=== PATIENT | female | born 1980 | race Caucasian/White ===

== ENCOUNTER 2021-03-15 11:53 | Outpatient (RCR) | payer SELFPAY | END 2021-03-15 23:59 | LOC: DC 11:53 | PROVIDERS: Visit Provider Advanced Practice Midwife | DX: O24.410 Gestational diabetes mellitus in pregnancy, diet controlled (principal); Z3A.00 Weeks of gestation of pregnancy not specified | CPT/HCPCS: 97802 ==

== ENCOUNTER 2021-03-28 14:00 | Outpatient (RCR) | payer SELFPAY | END 2021-04-15 23:59 | LOC: DC 14:00 | PROVIDERS: Visit Provider Advanced Practice Midwife | DX: O24.410 Gestational diabetes mellitus in pregnancy, diet controlled (principal); Z3A.00 Weeks of gestation of pregnancy not specified ==

== ENCOUNTER 2021-05-23 08:35 | Inpatient (IN) | payer SELFPAY ==
[2021-05-23] VITALS (36 sets, daily range): BP systolic 120–150; BP diastolic 82–89; PULSE 68–99; TEMP 36.4–37.4; O2SAT 96–98; BMI 37.0
[2021-05-23 09:30] LABS: Bedside Glucose 99 mg/dL (70-110)
[2021-05-23] MEDS: Lactated Ringers 1,000 ML 50 ML IV (10:00)
[2021-05-23 10:22] LABS: Absolute Lymphocyte Count 1.35 X10^3/uL (0.83-4.51); Absolute Neutrophil Count 4.9 X10^3/uL (2.0-7.7); Basophil# 0.03 X10^3/uL; Basophil% 0.4 % (0-1); Eosinophil# 0.11 X10^3/uL; Eosinophils% 1.6 % (0-5); Hematocrit 35.2 % (37-47); Hemoglobin 11.4 g/dL (12.0-15.0); Lymphocyte # 1.35 X10^3/ul (0.83-4.51); Lymphocyte % 19.8 % (19-41); Mean Corp Hgb Conc 32.4 g/dL (32-36); Mean Corpuscular Hgb 27.3 pg (27.0-32.0); Mean Corpuscular Volume 84.2 fL (81-99); Mean Platelet Vol. 12.2 fl (6.2-12.0); Monocyte# 0.39 X10^3/uL; Monocyte% 5.7 % (0-10); NRBC Flagged by Analyzer 0 % (0-5); Neutrophil # 4.92 X10^3/uL (2.7-7.7); Neutrophil % 72.4 % (47-70); Platelet Count 276 K/mm3 (150-450); RBC Distribution Width SD 48.9 fl (35.1-43.9); Red Blood Count 4.18 M/mm3 (4.2-5.4); White Blood Count 6.8 K/mm3 (4.4-11.0)
[2021-05-23] MEDS: Oxytocin 30 units/NS 500 ml 30 UNITS/500 ML IV.SOLN IV (11:30)
--- NOTE | 2021-05-23 12:39 | PCM.HP.OB ---
HPI - General General Date of Admission: 05/23/21 HPI Narrative JESSICA RENTERIA, is a 40 F who presents at 39w0d for scheduled IOL for AMA. Doing well. No KHAN, vision changes, upper abd pain, ctx, vb, lof. Good FM. Maternal Data Information CALVIN Calculator Estimated Delivery Date Method Current WG Current Estimate 05/30/21 LMP (Certain) 39w 0d PFSH PFSH Medical History (Updated 05/23/21 @ 12:[address] Jina Oliver, DO) Gestational diabetes Gestational HTN History of blood transfusion macrosomia hemorrhage Vaginal after Home Medications aspirin [Aspir-81] 81 mg PO DAILY 05/23/21 [History Last Taken 05/22/21 05:30] [id number] [] 1 tab PO 05/23/21 [History Last Taken 05/23/21 05:30] Allergy/AdvReac Type Severity Reaction Status Date / Time No Known Allergies Allergy Verified 05/23/21 08:54 Family History no significant family his Surgical History (Updated 05/23/21 @ 10:38 by Columba Henry) Previous section Social History Smoking Status: Never smoker History Elective abortions Hx Para 14 Spontaneous abortions Hx # Term Pregnancies Ectopic pregnancies Hx # Pregnancies Multiple births # of living children NST FHR Rate Baby A FHR Category:: Category I Vital Signs Vital Signs Vital Signs: 05/23/21 09:22 05/23/21 09:23 05/23/21 11:28 Temperature 97.6 F L 99.1 F Temperature Source Temporal Temporal Pulse Rate 92 99 68 Blood Pressure 120/85 H 133/89 H BP Systolic 120 133 BP Diastolic 85 89 Pulse Ox 96 97 05/23/21 12:14 Temperature 99.4 F H Temperature Source Temporal Pulse Rate 73 Blood Pressure 126/89 H BP Systolic 126 BP Diastolic 89 Pulse Ox 98 Weight Weight: 215 lb 12.8 oz Body Mass Index (BMI) 37.0 Physical Exam Const alert and no apparent distress General Appearance: comfortable GI non-tender Labs Labs Labs: Blood Type O POSITIVE Antibody Screen NEGATIVE Hct 35.2 % (37-47) L Hgb 11.4 g/dL (12.0-15.0) L Assessment & Plan (1) 39 weeks gestation of : PLAN: - Admit for scheduled IOL - Routine intrapartum care - Discussed r/b of an epidural and patient declines at this time. She understands if she needs an emergent section it would need to be performed under general anesthesia - Pit gtt and AROM in usual fashion - Category 1 tracing - Pelvis proven to 10 lb 5 oz - Discussed HIV and Hep C. Patient agreeable to Hep C testing (2) AMA (advanced maternal age) multigravida 35+: (3) Grand multipara: (4) History of macrosomia in in prior , currently : PLAN: - EFW expected to be < 4500 g and pelvis adequate (5) History of pre-eclampsia: PLAN: - No pre e symptoms today and BP WNL (6) GDM, class A1: PLAN: - Diabetic protocol (7) Positive GBS test: PLAN: - Penicillin
[2021-05-23 14:05] LABS: Bedside Glucose 88 mg/dL (70-110)
[2021-05-23 14:30] LABS: Hepatitis C Antibody Non-Reactive (Nonreactive)
[2021-05-23] MEDS: 0.9% Saline Lock 10 ML Syringe IV ×2 (15:03→20:37)
[2021-05-23] MEDS: Penicillin G 3,000,000 Units 50 ML 100 UNITS IV (16:24)
[2021-05-23 17:20] LABS: Bedside Glucose 88 mg/dL (70-110)
[2021-05-23] MEDS: Oxytocin 30 units/NS 500 ml 30 UNITS/500 ML IV.SOLN 334 UNITS IV (17:57)
--- NOTE | 2021-05-23 18:33 | PCM.OPRPT ---
Problems Associated Problem List Diagnoses (1) Positive GBS test: (2) GDM, class A1: (3) History of pre-eclampsia: (4) History of macrosomia in infant in prior , currently : (5) Grand multipara: (6) AMA (advanced maternal age) multigravida 35+: (7) 39 weeks gestation of : (8) Vaginal delivery: (9) History of section: (10) (vaginal after ): Report of Operation Date of Procedure: 05/23/21 Pre-Operative Diagnosis: 39 week gestation, single IUP, grand multip, TOLAC, history prior section, A1GDM Post-Operative Diagnosis: As above, Surgery/Procedure Performed:: Description of Surgical Findings:: Presented for scheduled induction of labor at 39 weeks for AMA and A1GDM. She was started on Pitocin but wanted to titrate the Pitocin slowly. She was ruptured for clear fluid. She progressed from 6 cm dilated to 10 cm dilated after being in hands and knees for about 15 minutes. Time from rupture to the time of delivery was about 5 hours. Infant in LOKI position. Clear fluid. Normal appearing placenta with 3 VC. No lacerations. Surgeon: Melody Type of Anesthesia: None Special Medications: None Specimen's removed: Placenta Drains: None Estimated Blood Loss (mL): 100 Description of Procedure: Patient delivered with 3 contractions. The head of the infant was delivered over an intact perineum, followed by the shoulders and body of the without any force or delay. A viable male infant was delivered atraumatically and placed on maternal abdomen. The cord was clamped and cut after a 60 sec delay by the father of the baby. Cord blood was obtained. The placenta was delivered with fundal massage. Placenta was noted to be normal-appearing and intact with three-vessel cord. The fundus was firm and bleeding hemostatic. No lacerations noted. Vaginal sweep was performed. Instrument sponge counts were correct. Grafts/Implants Used: None Complications None Admit VTE Documentation VTE Present on Admission: No
[2021-05-23 19:40] LABS: Bedside Glucose 100 mg/dL (70-110)
--- NOTE | 2021-05-23 21:00 | NURSING ---
report given to rupinder ABERNATHY. that rn to assume care of couplet at this time.
[2021-05-24] VITALS (8 sets, daily range): BP systolic 122–146; BP diastolic 76–97; PULSE 67–85; RESP 14–16; TEMP 36.1–36.7; O2SAT 95–97
[2021-05-24 05:16] LABS: Bedside Glucose 81 mg/dL (70-110)
--- NOTE | 2021-05-24 08:50 | PCM.PN.OB ---
Subjective Subjective Patient seen at bedside. infant. Denies any pain. Feeling good. Ambulating and voiding without difficulty. Denies any headache, vision changes, SOB or CP. BP's remain slightly elevated. Objective Data Objective Data Vital Signs: Vital Signs Temp Pulse Resp BP Pulse Ox 98.1 F 85 16 139/86 H 98 05/24/21 03:35 05/24/21 03:35 05/24/21 03:35 05/24/21 03:35 05/23/21 20:04 Oxygen Delivery Method Room Air Weight: 215 lb 12.8 oz Body Mass Index (BMI) 37.0 Intake & Output: Intake and Output for Last 24 Hours 05/22/21 05/23/21 05/24/21 23:59 23:59 23:59 Intake Total 2330.33 / 2330.33 Output Total 200 / 200 Balance 2130.33 / 2130.33 Lab / Micro Data Result Diagrams: 05/23/21 10:00 Labs: Laboratory Results - last 24 hr 05/23/21 09:14: POC Glucose 99 05/23/21 10:00: WBC 6.8, RBC 4.18 L, Hgb 11.4 L, Hct 35.2 L, MCV 84.2, MCH 27.3, MCHC 32.4, RDW Std Deviation 48.9 H, RDW Coeff of Aubrey 16.0 H, Plt Count 276, MPV 12.2 H, Immature Gran % (Auto) 0.100, Neut % (Auto) 72.4 H, Lymph % (Auto) 19.8, [place] % (Auto) 5.7, Eos % (Auto) 1.6, Baso % (Auto) 0.4, Absolute Neuts (auto) 4.9, Absolute Lymphs (auto) 1.35, Nucleated RBC % 0 05/23/21 10:00: Blood Type O POSITIVE, Antibody Screen NEGATIVE 05/23/21 13:00: Hepatitis C Antibody Non-Reactive 05/23/21 13:14: POC Glucose 88 05/23/21 17:16: POC Glucose 88 05/23/21 19:33: POC Glucose 100 05/24/21 05:08: POC Glucose 81 Micro: Microbiology 05/23/21 10:15 Nasal Secretion SARS-CoV-2 Antigen (Rapid) - Final ROS Eyes Eyes: Denies blurry vision, change in vision or spots in vision ENT HEENT: Denies dizziness or headache(s) Cardiovascular Cardiovascular: Denies abdominal pain, chest pain or dyspnea Respiratory/Chest Respiratory/Chest: Denies cough, dyspnea, shortness of breath at rest or shortness of breath with exertion Gastrointestinal Gastrointestinal: Denies abdominal pain, diarrhea or vomiting Genitourinary Genitourinary: Denies change in urinary stream, difficulty urinating or dysuria Musculoskeletal Musculoskeletal: Reports none Integumentary Integumentary: Denies rash Neurologic Neurologic: Denies dizziness, headache(s), memory loss or weakness Physical Exam Const alert and no apparent distress General Appearance: cooperative and comfortable Exam Limitations: no limitations HEENT normocephalic Eyes General Eye: normal appearance of both eyes Neck full ROM General: normal visual inspection Chest Chest: symmetrical chest wall rise Resp normal respiratory effort and normal air movement Effort and Inspection: symmetric chest movement Auscultation: clear to auscultation bilaterally Cardio regular rate and regular rhythm GI normal to inspection, nondistended, normoactive bowel sounds Back/Spine normal ROM Extremity full ROM and no calf tenderness General Extremity: normal exam except as noted Skin no rashes or lesions noted Neuro CN's II-XII intact bilaterally Psych mental status grossly normal Assessment & Plan (1) (vaginal after ): (2) Grand multipara: (3) AMA (advanced maternal age) multigravida 35+: PLAN: PPD 1 BP's 139/86 and 136/76- PIH labs ordered Routine care support Anticipate discharge home tomorrow (4) History of pre-eclampsia:
--- NOTE | 2021-05-24 08:53 | PCM.DC ---
Discharge Instructions Follow Up Care Test Results: Test results from this visit will be discussed in further detail at your follow-up appointment, if applicable. Discharge Plan Admission Admit Date/Time: 05/23/21 08:35 Attending Provider: Jina Oliver Primary Care Provider: Bill Mendoza Discharge Orders/Prescriptions Prescriptions: No Action 1 mg Tablet 1 tab PO RF: 0 aspirin [Aspir-81] 81 mg Tablet,Delayed Release (Dr/Ec) 81 mg PO DAILY RF: 0
[2021-05-24 11:06] LABS: Hematocrit 34.2 % (37-47); Mean Corp Hgb Conc 32.2 g/dL (32-36); Mean Corpuscular Hgb 27.1 pg (27.0-32.0); Mean Corpuscular Volume 84.2 fL (81-99); Mean Platelet Vol. 11.9 fl (6.2-12.0); Platelet Count 236 K/mm3 (150-450); RBC Distribution Width CV 16.1 % (11.6-14.6); RBC Distribution Width SD 48.7 fl (35.1-43.9); Red Blood Count 4.06 M/mm3 (4.2-5.4); White Blood Count 8.8 K/mm3 (4.4-11.0)
[2021-05-24 11:58] LABS: AST(SGOT) 70 U/L (15-37); Alanine Aminotransfer ALT/SGPT 155 U/L (13-56); Creatinine, Serum 0.71 mg/dL (0.55-1.02); EST Glomerular Filtration Rate 96 mL/min (>60); Est Glom Filt Rate - Afr Amer 116 mL/min (>60); Estimated Creatinine Clearance 90.04 ml/min; Uric Acid 5.6 mg/dL (2.6-6.0)
--- NOTE | 2021-05-25 02:50 | NURSING ---
Notified Jose J of last BP at 2330 was 146/97, pre-e labs were drawn yesterday, pt asymptomatic at this time. no new orders at this time. Continue to monitor
[2021-05-25 04:30] VITALS: BP 150/100
[2021-05-25 05:09] LABS: Hematocrit 36.9 % (37-47); Hemoglobin 11.7 g/dL (12.0-15.0); Mean Corp Hgb Conc 31.7 g/dL (32-36); Mean Corpuscular Hgb 26.8 pg (27.0-32.0); Mean Corpuscular Volume 84.6 fL (81-99); Mean Platelet Vol. 11.5 fl (6.2-12.0); Platelet Count 229 K/mm3 (150-450); RBC Distribution Width CV 15.9 % (11.6-14.6); RBC Distribution Width SD 48.8 fl (35.1-43.9); Red Blood Count 4.36 M/mm3 (4.2-5.4); White Blood Count 7.6 K/mm3 (4.4-11.0)
[2021-05-25 05:41] LABS: AST(SGOT) 74 U/L (15-37); Alanine Aminotransfer ALT/SGPT 179 U/L (13-56); Albumin, Serum 2.4 g/dL (3.2-5.0); Alkaline Phosphatase 210 U/L (45-117); Bilirubin, Direct 0.16 mg/dL (0.00-0.30); Creatinine, Serum 0.58 mg/dL (0.55-1.02); EST Glomerular Filtration Rate 122 mL/min (>60); Est Glom Filt Rate - Afr Amer 147 mL/min (>60); Estimated Creatinine Clearance 110.23 ml/min; Globulin 4.8 g/dL (2.2-4.2); Protein, Total 7.2 g/dL (6.4-8.2); Uric Acid 5.2 mg/dL (2.6-6.0)
--- NOTE | 2021-05-25 05:58 | NURSING ---
LAURA Gates called and notified of bp at 0430 was 150/100, asymptomatic. lab results reviewed with Elyse- AST-74, ALT-179. order to recheck BP at this time.
[2021-05-25 07:45] VITALS: BP 141/90; PULSE 66; RESP 18; TEMP 36.6; O2SAT 97
[2021-05-25] MEDS: Labetalol 200 MG Tablet PO (09:28)
[2021-05-25 11:40] VITALS: BP 129/80; PULSE 63; RESP 16; TEMP 36.7; O2SAT 96
[2021-05-25 12:03] LABS: Hematocrit 35.9 % (37-47); Hemoglobin 11.2 g/dL (12.0-15.0); Mean Corp Hgb Conc 31.2 g/dL (32-36); Mean Corpuscular Hgb 26.6 pg (27.0-32.0); Mean Corpuscular Volume 85.3 fL (81-99); Mean Platelet Vol. 11.8 fl (6.2-12.0); Platelet Count 262 K/mm3 (150-450); RBC Distribution Width CV 15.9 % (11.6-14.6); RBC Distribution Width SD 48.9 fl (35.1-43.9); Red Blood Count 4.21 M/mm3 (4.2-5.4); White Blood Count 6.9 K/mm3 (4.4-11.0)
[2021-05-25 12:15] LABS: AST(SGOT) 103 U/L (15-37); Alanine Aminotransfer ALT/SGPT 216 U/L (13-56); Albumin, Serum 2.4 g/dL (3.2-5.0); Alkaline Phosphatase 210 U/L (45-117); Bilirubin, Direct 0.16 mg/dL (0.00-0.30); Globulin 4.8 g/dL (2.2-4.2); Protein, Total 7.2 g/dL (6.4-8.2)
--- NOTE | 2021-05-25 12:19 | PCM.DC.SUM ---
Providers Date of Admission: 05/23/21 Primary Care Physician: Dr. Bill Mendoza DO Reason For Visit: INDUCTION Diagnosis Discharge Diagnosis (1) (vaginal after ): Status: Acute Code(s): O34.219 - Maternal care for unspecified type scar from previous delivery (2) Grand multipara: Status: Acute Code(s): Z64.1 - Problems related to multiparity (3) AMA (advanced maternal age) multigravida 35+: Status: Acute Code(s): O09.529 - Supervision of elderly multigravida, unspecified trimester (4) History of pre-eclampsia: Status: Acute Code(s): Z87.59 - Personal history of other complications of , childbirth and the puerperium Medications at Discharge Home Medications aspirin [Aspir-81] 81 mg PO DAILY 05/23/21 [id number] [] 1 tab PO 05/23/21 labetalol 200 mg PO BID 30 Days #60 tab 05/25/21 Hospital Course Operations None Procedures None Summary of Care Provided Hospital Course: for induction will be of labor. She had a successful thatPatien after c sectionesarean by day #2t was in doing well. Her blood pressure was mildly elevated. No signs of preeclampsia. Sent home on labetalol. To return if any symptoms or signs of preeclampsia or follow-up in the office in 1 week for blood pressure check. Weight / BMI Weight Weight: 97.885 kg Body Mass Index (BMI) 37.0 ABG / Lab / Microbiology Data Result Diagrams: 05/25/21 11:40 05/25/21 04:50 Laboratory: Laboratory Results - last 24 hr 05/25/21 04:50: WBC 7.6, RBC 4.36, Hgb 11.7 L, Hct 36.9 L, MCV 84.6, MCH 26.8 L, MCHC 31.7 L, RDW Std Deviation 48.8 H, RDW Coeff of Aubrey 15.9 H, Plt Count 229, MPV 11.5 05/25/21 04:50: Creatinine 0.58, Estim Creat Clear Calc 110.23, Est GFR (MDRD) Af Amer 147, Est GFR (MDRD) Non-Af 122, Uric Acid 5.2, Total Bilirubin 0.40, Direct Bilirubin 0.16, AST 74 H, ALT 179 H, Alkaline Phosphatase 210 H, Total Protein 7.2, Albumin 2.4 L, Globulin 4.8 H 05/25/21 11:40: WBC 6.9, RBC 4.21, Hgb 11.2 L, Hct 35.9 L, MCV 85.3, MCH 26.6 L, MCHC 31.2 L, RDW Std Deviation 48.9 H, RDW Coeff of Aubrey 15.9 H, Plt Count 262, MPV 11.8 05/25/21 11:40: Total Bilirubin 0.50, Direct Bilirubin 0.16, AST 103 H, ALT 216 H, Alkaline Phosphatase 210 H, Total Protein 7.2, Albumin 2.4 L, Globulin 4.8 H Microbiology: Microbiology 05/23/21 10:15 Nasal Secretion SARS-CoV-2 Antigen (Rapid) - Final D/C Instructions Discharge Diet: No restrictions May resume sexual activity in: 6 weeks Call your doctor if your incision/area has: Continuous Slow Oozing, Sudden Increased Bleeding, Foul Smelling Discharge and Swelling at the incision site Call your doctor if you observe: Fever of 101 or Higher and Inability to urinate Please Follow Up With: Macarena Hung MD When: Follow up with our office in 1-2 and 6 weeks or as needed. [phone] Meaningful Use Info Meaningful Use Diagnoses (Choose all that apply): None applicable Discharge Plan Admission Admit Date/Time: 05/23/21 08:35 Primary Reason for Your Visit: Vaginal Attending Provider: Jina Oliver Primary Care Provider: Bill Mendoza Discharge Orders/Prescriptions Prescriptions: New labetalol 200 mg tablet 200 mg PO BID 30 Days Qty: 60 RF: 0 Continued 1 mg Tablet 1 tab PO RF: 0 No Action aspirin [Aspir-81] 81 mg Tablet,Delayed Release (Dr/Ec) 81 mg PO DAILY RF: 0 Referrals / Follow Up: Bill Mendoza DO [Primary Care Provider] - Disposition Disposition (needs filled in before D/C Order can be placed): Home, Self Care
--- NOTE | 2021-05-25 13:06 | PN.OBGYN_ITS ---
Subjective Subjective Denies headache or visual changes. Denies epigastric pain. Denies nausea or vomiting. Objective Data Objective Data Vital Signs: Vital Signs Temp Pulse Resp BP Pulse Ox 98.1 F 63 16 129/80 H 96 05/25/21 11:40 05/25/21 11:40 05/25/21 11:40 05/25/21 11:40 05/25/21 11:40 Oxygen Delivery Method Room Air Weight: 97.885 kg Body Mass Index (BMI) 37.0 Intake & Output: Intake and Output for Last 24 Hours 05/23/21 05/24/21 05/25/21 23:59 23:59 23:59 Intake Total 2330.33 / 2330.33 Output Total 200 / 200 Balance 2130.33 / 2130.33 Lab / Micro Data Result Diagrams: 05/25/21 11:40 05/25/21 04:50 Labs: Laboratory Results - last 24 hr 05/25/21 04:50: WBC 7.6, RBC 4.36, Hgb 11.7 L, Hct 36.9 L, MCV 84.6, MCH 26.8 L, MCHC 31.7 L, RDW Std Deviation 48.8 H, RDW Coeff of Aubrey 15.9 H, Plt Count 229, MPV 11.5 05/25/21 04:50: Creatinine 0.58, Estim Creat Clear Calc 110.23, Est GFR (MDRD) Af Amer 147, Est GFR (MDRD) Non-Af 122, Uric Acid 5.2, Total Bilirubin 0.40, Direct Bilirubin 0.16, AST 74 H, ALT 179 H, Alkaline Phosphatase 210 H, Total Protein 7.2, Albumin 2.4 L, Globulin 4.8 H 05/25/21 11:40: WBC 6.9, RBC 4.21, Hgb 11.2 L, Hct 35.9 L, MCV 85.3, MCH 26.6 L, MCHC 31.2 L, RDW Std Deviation 48.9 H, RDW Coeff of Aubrey 15.9 H, Plt Count 262, MPV 11.8 05/25/21 11:40: Total Bilirubin 0.50, Direct Bilirubin 0.16, AST 103 H, ALT 216 H, Alkaline Phosphatase 210 H, Total Protein 7.2, Albumin 2.4 L, Globulin 4.8 H Micro: Microbiology 05/23/21 10:15 Nasal Secretion SARS-CoV-2 Antigen (Rapid) - Final Physical Exam Narrative Awake alert, no acute distress. Sitting up in bed eating comfortably. 1+ edema, 2+ DTRs, 1 beat of clonus Abdomen soft, mildly and softly distended. Fundus is firm. No right upper quadrant tenderness or masses. Assessment & Plan (1) (vaginal after ): PLAN: Blood pressures are stable. No symptoms of preeclampsia. LFTs are trending up mildly. I recommended to the patient and her that she remain for observation. They declined. I discussed with them that preeclampsia or help syndrome can progress quickly. They desire discharge home. Recommend that they return should she have any change in symptoms, including a severe headache or any epigastric or right upper quadrant pain. Follow-up with primary care, business office director or our office within 1 week for blood pressure check. Agrees to this and to continue labetalol. (2) Gestational hypertension:
[2021-05-25 16:00] VITALS: BP 135/92; PULSE 76; RESP 18; TEMP 36.3
--- NOTE | 2021-05-25 16:10 | NURSING ---
Up walking around room dressed for discharge. Reinforced symptoms of preeclampsia and verb. understanding. Information sheet given.
--- NOTE | 2021-05-29 19:09 | NURSING ---
follw up phone call attempted. No answer. Unable to leave voice mail
== END 2021-05-25 16:05 | disposition home or self-care (01) | DRG 807 ==
PROVIDERS: Advanced Practice Midwife; Obstetrics & Gynecology; Admitting Provider Obstetrics & Gynecology; PCP Family Medicine; Referring Provider Obstetrics & Gynecology; Visit Provider Obstetrics & Gynecology
DX: O34.219 Maternal care for unspecified type scar from previous cesarean delivery (principal); Z37.0 Single live birth; Z3A.39 39 weeks gestation of pregnancy; O24.420 Gestational diabetes mellitus in childbirth, diet controlled; O16.4 Unspecified maternal hypertension, complicating childbirth; O99.824 Streptococcus B carrier state complicating childbirth
CPT/HCPCS: 59025; 59050; 80076; 82565; 82962; 84450; 84460; 84550; 85025; 85027; 86803; 86850; 86900; 86901; 87426; 99218; J7120; A4216; G0378